=== PATIENT | female | born 1995 | race Caucasian/White ===

== ENCOUNTER 2019-04-16 19:21 | Emergency (ER) | payer SELFPAY ==
--- NOTE | 2019-04-16 20:07 | Event Note ---
ED Screening Note Date of service: 04/16/19 Time: 20:06 ED Screening Note: 24 y o female presents with right ankle pain s/p injury yesterday ambulatory with a limp This initial assessment/diagnostic orders/clinical plan/treatment(s) is/are subject to change based on patients health status, clinical progression and re- assessment by fellow clinical providers in the ED. Further treatment and workup at subsequent clinical providers discretion. Patient/guardian urged not to elope from the ED as their condition may be serious if not clinically assessed and managed. Initial orders include: ankle xray
--- NOTE | 2019-04-16 20:48 | XRay Report ---
Right ankle, 2 views INDICATION: Pain and swelling following injury yesterday FINDINGS: There is soft tissue swelling especially adjacent to the lateral malleolus and a joint effu mukund may be present. There is no fracture, dislocation or arthritic change however no bony abnormalit y demonstrated. Signer Name: Yifan Hill MD Signed: 04/16/2019 8:43 PM Workstation Name: [id number]
[2019-04-16 22:29] VITALS: BP 132/69
--- NOTE | 2019-04-16 23:15 | Emergency Department Report ---
ED Lower Extremity HPI - General Chief Complaint: Extremity Injury, Lower Stated Complaint: RT ANKLE INJURY Time Seen by Provider: 04/16/19 21:48 Source: patient Mode of arrival: Ambulatory Limitations: No Limitations - History of Present Illness Initial Comments: This is a pleasant 24-year-old female presents to department with a chief complaint of right ankle pain after an inversion injury yesterday. Patient states she was walking when she inverted her right ankle. She has been having pain and swelling since. Pain is rated as an 8 out of 10 in severity described as dull and achy with throbbing pain. Immobilization mildly relieves the pain but walking and bearing weight aggravates it. She denies any other injuries. MD Complaint: ankle injury Onset/Timin -: Sudden Injury: Ankle: Right Type of Injury: inversion Place: work Severity: moderate Severity scale (0 -10): 8 Improves With: immobilization Worsens With: movement Context: walking Associated Symptoms: swelling, able to partially bear weight - Related Data Previous Rx's Medication Instructions Recorded Last Taken Type Naproxen 500 mg PO BID #20 tablet 04/16/19 Unknown Rx Allergies Allergy/AdvReac Type Severity Reaction Status Date / Time No Known Allergies Allergy Unverified 04/16/19 19:44 ED Review of Systems ROS: Stated complaint: RT ANKLE INJURY Other details as noted in HPI Constitutional: denies: chills, fever Eyes: denies: eye pain, eye discharge, vision change ENT: denies: ear pain, throat pain Respiratory: denies: cough, shortness of breath, wheezing Cardiovascular: denies: chest pain, palpitations Endocrine: no symptoms reported Gastrointestinal: denies: abdominal pain, nausea, diarrhea Genitourinary: denies: urgency, dysuria, discharge Musculoskeletal: as per HPI, joint swelling, arthralgia (tenderness to palpation over the lateral right ankle with soft tissue swelling. Normal DP and PT pulses.). denies: back pain Skin: denies: rash, lesions Neurological: denies: headache, weakness, paresthesias Psychiatric: denies: anxiety, depression Hematological/Lymphatic: denies: easy bleeding, easy bruising ED Past Medical Hx - Past Medical History Previous Medical History?: Yes Hx Asthma: Yes - Surgical History Past Surgical History?: No - Social History Smoking Status: Never Smoker Substance Use Type: None - Medications Home Medications: Home Medications Medication Instructions Recorded Confirmed Last Taken Type Naproxen 500 mg PO BID #20 tablet 04/16/19 Unknown Rx ED Physical Exam - General Limitations: No Limitations ED Course Vital Signs 04/16/19 04/16/19 04/16/19 19:37 20:05 22:27 Temperature 98.4 F 98.4 F 98.6 F Pulse Rate 84 91 H 82 Respiratory 18 18 20 Rate Blood Pressure 115/64 115/64 Blood Pressure 132/69 [Left] O2 Sat by Pulse 98 100 99 Oximetry ED Lower Extremity MDM - Radiology Data Radiology results: report reviewed, image reviewed XRay Report Signed Patient: CHRISTINA AREVALO MR#: [id number] : 1995 Acct:[id number] Age/Sex: 24 / F ADM Date: 04/16/19 Loc: ED Attending Dr: Ordering Physician: HAZEL RICO Date of Service: 04/16/19 Procedure(s): XR ankle 2V RT Accession Number(s): [id number] cc: HAZEL RICO Fluoro Time In Minutes: Right ankle, 2 views INDICATION: Pain and swelling following injury yesterday FINDINGS: There is soft tissue swelling especially adjacent to the lateral malleolus and a joint effusion may be present. There is no fracture, dislocation or arthritic change however no bony abnormality demonstrated. Signer Name: Yifan Hill MD Signed: 04/16/2019 8:43 PM Workstation Name: [id number] Transcribed By: Dictated By: Yifan Hill MD Electronically Authenticated By: Yifan Hill MD Signed Date/Time: 04/16/192042 - Medical Decision Making X-rays of the right ankle were negative for acute fractures or dislocations as read by the radiologist. I recommended rest, ice, compression and elevation and will treat with anti-inflammatories. Patient was given outpatient follow-up with podiatry for reevaluation. Educated patient that x-rays are not perfect and if patient's pain is persistent she should follow up with primary orthopedics for repeat x-ray to rule out an occult fracture. Patient verbalizes understanding. All questions were answered. - Differential Diagnosis sprain, strain, fracture Critical care attestation.: If time is entered above; I have spent that time in minutes in the direct care of this critically ill patient, excluding procedure time. ED Disposition Clinical Impression: Ankle sprain Qualifiers: Encounter type: initial encounter Involved ligament of ankle: unspecified ligament Laterality: right Qualified Code(s): S93.401A - Sprain of unspecified ligament of right ankle, initial encounter Disposition: TO HOME OR SELFCARE Is pt being admited?: No Does the pt Need Aspirin: No Condition: Stable Instructions: Ankle Sprain (ED) Prescriptions: Naproxen 500 mg PO BID #20 tablet Referrals: PRIMARY CARE, [Primary Care Provider] - 3-5 Days LINDA SARMIENTO DPM [Staff Physician] - 3-5 Days Forms: Work/School Release Form(ED) Time of Disposition: 23:16
== END 2019-04-16 23:30 | disposition home or self-care (01) ==
LOC: ED 19:21
DX: S93.401A Sprain of unspecified ligament of right ankle, initial encounter (principal); J45.909 Unspecified asthma, uncomplicated; Z79.899 Other long term (current) drug therapy; W01.198A Fall on same level from slipping, tripping and stumbling with subsequent striking against other object, initial encounter; Y93.89 Activity, other specified; Y92.69 Other specified industrial and construction area as the place of occurrence of the external cause; Y99.8 Other external cause status
CPT/HCPCS: 99283